=== PATIENT | female | born 1970 | race Caucasian/White ===

== ENCOUNTER → 2016-05-21 | Outpatient (CLI) | payer OTHER ==
--- NOTE | 2016-05-21 12:51 | KCIC ---
LEFT HIP, TWO VIEWS, 05/21/2016: History: Hip pain No fracture or dislocation is identified. The hip joint space is well preserved. Minimal calcifications are noted in the soft tissues along the lateral margin of the greater trochanter, probably of tendinous origin. IMPRESSION: No acute left hip abnormality is detected. Electronically signed by: Artem Mancini MD (May 21, 2016 12:50:42)
== END | disposition home or self-care (01) ==
LOC: KCIC 07:53
PROVIDERS: ATTEND Physical Medicine & Rehabilitation
DX: M25.552 Pain in left hip (principal)
CPT/HCPCS: 73502

== ENCOUNTER → 2018-03-26 | Outpatient (CLI) | payer MEDICAID, OTHER ==
--- NOTE | 2018-03-26 15:25 | KCIC ---
Pelvic and transvaginal ultrasound History: Heavy periods Comparison: None. Findings: Multiple transabdominal sonographic images of pelvis are submitted. Ovaries and ureters are poorly visualized. Transvaginal ultrasound: Multiple transvaginal sonographic images of the pelvis are submitted. Uterus is retroflexed, likely partially septate uterus. There is minimal free fluid in the posterior cul-de-sac. Right aspect of the endometrium measured about 1.1 cm, left about 0.6 cm. Near or within the right aspect of the endometrium, there is a somewhat ovoid more solid-appearing mass about 1.4 x 1.4 x 1.7 cm. Uterus measured 10.5 x 5.8 x 7.1 cm. Right ovary measured 3.3 x 2.3 x 3.7 cm. Left ovary measured 3.5 x 3.4 x 4.2 cm. There is nabothian cyst up to 1 cm. There is a focus of different echogenicity of the right ovary about 2 x 1.5 x 2.1 cm with internal echoes present, not associated with significant central vascularity on color Doppler imaging. There is normal low resistance vascularity of the right ovary. There is hypoechoic lesion with internal echoes of the left ovary about 2.7 x 2.5 x 2.37 m in size not associated with central internal vascularity color Doppler imaging. There is normal low resistance vascularity of the left ovary. There is a mass of the uterus posteriorly along the serosal surface about 3.4 x 3.1 x 3.5 cm. There are apparently other uterine masses present which were not measured. Impression: 1. There is apparently partially septate uterine. Near or within the right aspect of the endometrium, there is a more solid-appearing mass, consideration of fibroid or large polyp. There are other uterine masses, likely fibroids. 2. There is complex left ovarian cyst up to 2.7 cm, internal debris or hemorrhage. There is also focus of different echogenicity of the right ovary favored to be a complex or hemorrhagic cyst, no significant internal vascularity on color Doppler imaging. Given complex features, short-term follow-up in 2-3 months is advised. There is minimal nonspecific free fluid in the cul-de-sac. Electronically signed by: Francis Black MD (03/26/2018 3:20 PM) [id number]
== END | disposition home or self-care (01) ==
LOC: KCIC US 08:01
PROVIDERS: ATTEND Nurse Practitioner Family
DX: N83.292 Other ovarian cyst, left side (principal); N88.8 Other specified noninflammatory disorders of cervix uteri
CPT/HCPCS: 76830; 76856

== ENCOUNTER → 2018-04-15 | Outpatient (CLI) | payer OTHER ==
--- NOTE | 2018-04-15 12:48 | KCIC ---
Bilateral digital screening mammograms: Reason for examination: Routine screening. New baseline. Interpretation was made with the benefit of CAD. The skin and nipples show no abnormalities. No abnormal axillary lymph nodes are seen. The breast parenchyma is extremely dense. (Breast density: Category D.) There are no dominant masses, suspicious calcifications or architectural distortion. Benign calcifications seen in the right breast. Impression: No evidence of malignancy. Recommend routine screening. Your patient's mammogram demonstrates that she has dense breast tissue (breast density category C or D), which could hide abnormalities, and if she has other risk factors for breast cancer that have been identified, she might benefit from supplemental screening tests that may be suggested by you as her ordering physician. Dense breast tissue, in and of itself, is a relatively common condition. Therefore, this information is not provided to cause undue concern, but rather to raise your awareness and to promote discussion with your patient regarding the presence of other risk factors, in addition to dense breast tissue. Your patient's mammography results will be sent to her. BI-RAD Category 1: Negative. "Our facility is accredited by the [employer] Mammography Program." This patient's information has been entered into a reminder system for the patient to be notified with the results of her examination and a target date for the next mammogram. Electronically signed by: Juliann Stevens MD (04/15/2018 12:44 PM) [id number]
== END | disposition home or self-care (01) ==
LOC: KCIC MAMMO 09:04
DX: Z12.31 Encounter for screening mammogram for malignant neoplasm of breast (principal)
CPT/HCPCS: 77067